=== PATIENT | female | born 1980 | race Caucasian/White ===

== ENCOUNTER → 2016-08-18 | Outpatient (CLI) | payer OTHER ==
[~2016-08-18] MED LIST: ACETAMINOPHEN325 M1 PO; ALPRAZOLAM1 MG PO; AMBIEN 10 MG TA10 MG PO; AZATHIOPRINE50 MG PO; BUPROPION HCL150 M1 PO; CYMBALTA60 MG PO; FENTANYL 1100 MCG/HR TRANSDERM; FUROSEMIDE 40 M40 M1 PO; HYDROCODON-ACE1 EAC5 PO; IBUPROFEN 600600 M1 PO; KLOR-CON 10 ER10 MEQ PO; LEVOTHYROXIN0.125 M1 PO; NICOTINE TRANSD21 M1 TD; NORCO 10-325 T1 EACH PO; NUVIGIL250 MG PO; PLAQUENIL200 MG PO; PREDNISONE 20 M20 M1 PO; PREDNISONE 5 MG5 M1 PO; PROTONIX40 M1 PO; ULTRAM 50MG TAB50 MG PO; XANAX XR1 MG PO; ZOFRAN4 MG PO
== END ==
LOC: RAD 11:28
DX: R07.81 Pleurodynia (principal); R05 Cough